=== PATIENT | female | born 1955 | race Caucasian/White ===

== ENCOUNTER 2017-06-26 14:56 | Outpatient (CLI) | payer OTHER ==
[~2017-06-26 14:56] MED LIST: NABUMETONE500 MG PO; PERCOCET 5/3251 TAB PO
== END 2017-06-26 15:13 | disposition home or self-care (01) ==
LOC: RAD 14:56
DX: M25.561 Pain in right knee (principal); M25.562 Pain in left knee; E78.2 Mixed hyperlipidemia; E66.01 Morbid (severe) obesity due to excess calories; E11.9 Type 2 diabetes mellitus without complications; M17.0 Bilateral primary osteoarthritis of knee

== ENCOUNTER 2017-06-28 14:14 | Outpatient (CLI) | payer OTHER | END 2017-06-28 14:23 | disposition home or self-care (01) | LOC: MRI 14:14 | DX: M25.561 Pain in right knee (principal) | CPT/HCPCS: 73721 ==

== ENCOUNTER 2017-10-24 13:40 | Outpatient (CLI) | payer OTHER | END 2017-10-24 14:00 | disposition home or self-care (01) | LOC: NUCLEAR 13:40 | DX: M25.461 Effusion, right knee (principal); M25.462 Effusion, left knee; I87.2 Venous insufficiency (chronic) (peripheral) ==